=== PATIENT | male | born 2000 | race African-American/Black ===

== ENCOUNTER 2021-09-20 09:11 | Emergency (ER) | payer BC, OTHER ==
[~2021-09-20] VITALS: Ht 177.8 cm; Wt 77.3 kg
[~2021-09-20 09:11] MED LIST: NO MEDS
[2021-09-20] MEDS ORDERED: KETOROLAC TROMETHAMINE 30 MG/ML VIAL IM ONE (09:30)
[2021-09-20] MEDS ORDERED: CYCLOBENZAPRINE HCL 10 MG TABLET PO ONE (09:30)
[2021-09-20] MEDS ORDERED: LIDOCAINE 5% TRANSDERMAL PATCH TD ONE (09:30)
[2021-09-20] MEDS ORDERED: IBUPROFEN 600 MG TABLET PO ONE (10:15)
[2021-09-20 11:30] VITALS: BP 120/86
== END 2021-09-20 11:47 | disposition home or self-care (01) ==
LOC: EMS 09:11
DX: M54.50 Low back pain, unspecified (principal); M62.838 Other muscle spasm
CPT/HCPCS: 99284; J1885

== ENCOUNTER 2024-11-29 09:21 | Emergency (ER) | payer OTHER | END 2024-11-29 10:32 | disposition left against medical advice (07) | LOC: EMS 09:24 | DX: Z53.21 Procedure and treatment not carried out due to patient leaving prior to being seen by health care provider (principal) ==